=== PATIENT | male | born 1960 | race Caucasian/White ===

== ENCOUNTER 2017-09-09 08:09 | Emergency (ER) | payer OTHER ==
[~2017-09-09] VITALS: Ht 172.7 cm; Wt 86.2 kg
[2017-09-09] MEDS ORDERED: Cipro500 MG PO (10:31)
[2017-09-09] MEDS ORDERED: IBUP600 PO (10:31)
[2017-09-09] MEDS ORDERED: Percocet 5-3251 EACH PO (10:31)
[2017-09-10 14:39] LABS: Source Urine
== END 2017-09-09 10:57 | disposition home or self-care (01) ==
LOC: ER 08:09
PROVIDERS: Emergency Medicine
DX: N45.1 Epididymitis (principal); F17.200 Nicotine dependence, unspecified, uncomplicated
CPT/HCPCS: 76870; 81000; 87491; 87591; 96372; 99284; J1170

== ENCOUNTER → 2025-01-30 | Outpatient (CLI) | payer OTHER ==
[~2025-01-30] MED LIST: CYCL10 PO; Cipro500 MG PO; IBUP600 PO; LIDO700A20 TOP; ONDA4ODT MM; OXAYDO5 M1 PO; Percocet 5-3251 EACH PO
[2025-01-30 20:24] LABS: Campylobacter Sp Not Detected (NOT DETECT); E. Coli O157 Not Detected (NOT DETECT); Enteroaggregative E. coli-EAEC Not Detected (NOT DETECT); Enteropathogenic E. coli-EPEC Not Detected (NOT DETECT); Enterotoxigenic E. coli-ETEC Not Detected (NOT DETECT); Salmonella Sp Not Detected (NOT DETECT); Shiga Toxin-prod E. coli-STEC Not Detected (NOT DETECT); Shigella/Enteroin E. coli-EIEC Not Detected (NOT DETECT); Vibrio Sp Not Detected (NOT DETECT)
[2025-02-03 15:56] LABS: CALPROTECTIN,FECAL 313 ug/g (<=49)
== END | disposition home or self-care (01) ==
LOC: LAB 12:20 → LAB SHORT 12:20
PROVIDERS: Internal Medicine
DX: K52.9 Noninfective gastroenteritis and colitis, unspecified (principal)
CPT/HCPCS: 83993; 87507

== ENCOUNTER 2025-04-10 11:07 | Day surgery (SDC) | payer OTHER ==
[2025-04-10] VITALS (55 sets, daily range): BP systolic 100–140; BP diastolic 53–120
[~2025-04-10] VITALS: Ht 172.7 cm; Wt 71.3 kg
[2025-04-10] MEDS ORDERED: Midazolam HCl 1MG / ML 2ML Vial ONE (11:58)
[2025-04-10] MEDS ORDERED: OMEP20ER PO (12:05)
[2025-04-10] MEDS ORDERED: FINA5 PO (12:08)
[2025-04-10] MEDS ORDERED: TAMS.4ER PO (12:09)
--- NOTE | 2025-04-10 12:34 | NUR ---
History, Chart, Medications and Allergies reviewed before start of procedure. Patient up to Ambulate independently. Gait steady. Pre-Op teaching done. Pt verbalizes understanding. Patient confirms NPO status and agrees with scheduled surgery. Patient states colon prep results red without sediment. Patient States Post-Procedure ride home has been arranged.
[2025-04-10] MEDS ORDERED: Bentyl20 MG PO (12:39)
[2025-04-10] MEDS ORDERED: LUBIPROSTONE8 MCG PO (12:40)
--- NOTE | 2025-04-10 13:01 | NUR ---
04/10/25 1301 David Jenkins CONFIRMED AND REVIEWED H&P, MEDCICATIONS, ALLERGIES, MEDICAL HISTORY, RESPIRATORY HISTORY, VITAL SIGNS, 3-LEAD EKG, CONSENTS, AND PHYSICIAN ORDERS. PATIENT CONFIRMS NPO STATUS AND AGREES WITH SCHEDULED PROCEDURE. MONITOR INTACT WITH CONTINUOUS PULSE OXIMETRY, CAPNOGRAPHY, 3-LEAD EKG, INTERMITTENT BP. SUPPLEMENTAL O2 TO BE TITRATED THROUGHOUT PROCEDURE TO MAINTAIN O2 SATURATION ABOVE 90%. PATIENT DETERMINED TO BE ASA APPROPRIATE FOR PROPOFOL SEDATION PRIOR TO START OF PROCEDURE BY DR. SCOTT.
[2025-04-10] MEDS ORDERED: FentaNYL Citrate 50 MCG/ML 2 ML Injection ONE (14:26)
--- NOTE | 2025-04-10 15:23 | NUR ---
[address] OFF [address] IMAGING FOR CT
--- NOTE | 2025-04-10 16:20 | NUR ---
Discharge instructions reviewed with patient. Patient verbalizes understanding. Copy given to patient to take home. Patient States Post-Procedure ride home has been arranged. Discharged via wheelchair to private car for ride home.
== END 2025-04-10 16:05 | disposition home or self-care (01) ==
LOC: ORSCMMR 11:07 → ORD 12:30 → ORSCMMR 16:05
PROVIDERS: Family Medicine
PROC: 0DB78ZX Excision of Stomach, Pylorus, Via Natural or Artificial Opening Endoscopic, Diagnostic (ICD-10-PCS; principal; 2025-04-10 12:30)
PROC: 0DBL8ZX Excision of Transverse Colon, Via Natural or Artificial Opening Endoscopic, Diagnostic (ICD-10-PCS; principal; 2025-04-10 12:30)
PROC: 0DB48ZX Excision of Esophagogastric Junction, Via Natural or Artificial Opening Endoscopic, Diagnostic (ICD-10-PCS; principal; 2025-04-10 12:30)
PROC: 3E0H8KZ Introduction of Other Diagnostic Substance into Lower GI, Via Natural or Artificial Opening Endoscopic (ICD-10-PCS; principal; 2025-04-10 12:30)
PROC: 0DBM8ZX Excision of Descending Colon, Via Natural or Artificial Opening Endoscopic, Diagnostic (ICD-10-PCS; principal; 2025-04-10 12:30)
PROC: 0DBK8ZX Excision of Ascending Colon, Via Natural or Artificial Opening Endoscopic, Diagnostic (ICD-10-PCS; principal; 2025-04-10 12:30)
PROC: 0DB98ZX Excision of Duodenum, Via Natural or Artificial Opening Endoscopic, Diagnostic (ICD-10-PCS; principal; 2025-04-10 12:30)
DX: R10.9 Unspecified abdominal pain (principal); K92.1 Melena; K31.7 Polyp of stomach and duodenum; K29.70 Gastritis, unspecified, without bleeding; D12.4 Benign neoplasm of descending colon; D12.3 Benign neoplasm of transverse colon; D12.2 Benign neoplasm of ascending colon; R63.4 Abnormal weight loss; D64.9 Anemia, unspecified; K44.9 Diaphragmatic hernia without obstruction or gangrene; K64.4 Residual hemorrhoidal skin tags; Z79.899 Other long term (current) drug therapy; E78.2 Mixed hyperlipidemia; F41.9 Anxiety disorder, unspecified; F17.210 Nicotine dependence, cigarettes, uncomplicated; F32.9 Major depressive disorder, single episode, unspecified
CPT/HCPCS: 71260; 74177; 88305; 88342; J2250; J2704; J3010; J7120; Q9967

== ENCOUNTER 2025-04-23 14:38 | Day surgery (SDC) | payer OTHER ==
[~2025-04-23] VITALS: Ht 170.2 cm; Wt 68.1 kg
[~2025-04-23 14:38] MED LIST changes: +Bentyl20 MG PO; +FINA5 PO; +LUBIPROSTONE8 MCG PO; +OMEP20ER PO; +TAMS.4ER PO
[2025-04-23 15:36] VITALS: BP 117/78
--- NOTE | 2025-04-23 15:48 | NUR ---
History, Chart, Medications and Allergies reviewed before start of procedure.Pre-Op teaching done. Pt verbalizes understanding. Patient states colon prep results clear. Patient States Post-Procedure ride home has been arranged. Patient confirms NPO status and agrees with scheduled surgery.
--- NOTE | 2025-04-23 16:12 | NUR ---
04/23/[address] SEE ANESTHESIA RECORDS.
[2025-04-23] MEDS ORDERED: NS 500 ML IV ONE (17:27)
[2025-04-23] MEDS ORDERED: NS 1,000 ML BAG IR SCH (17:30)
[2025-04-23] MEDS ORDERED: NS 500 ML IV SCH (17:40)
[2025-04-23 18:20] VITALS: BP 122/94
[2025-04-23 18:35] VITALS: BP 134/97
--- NOTE | 2025-04-23 18:44 | NUR ---
TO STEP POST PROCEDURE. CONFUSED, FORGETFUL, EASY TO RE-ORIENT. DENIES PAIN, NAUSEA, SOB. MULTIPLE BX'S TAKEN, PT INFORMED POSSIBLITY OF SMALL AMT BLOOD IN STOOL, VERBALIZED UNDERSTANDING OF DC INSTRUCTIONS, FOLLOW UP, MEDICATIONS. NAYAN PO WELL. FAMILY AT BEDSIDE. DRESSED AT BEDSIDE WITH SLIGHT ASSIST. AMBULATED TO BATHROOM WITH SB ASSIST. INSTRUCTED TO USE CALL LIGHT/SAFETY RAILS WHILE USING BATHROOM, DECLINED NURSE SUPERVISION IN BATHROOM. NOISE HEARD FROM BATHROOM, PT FOUND SITTING ON FLOOR. STATED HE "LEANED AGAINST WALL AND SLID DOWN". DENIES ANY INJURY. SEATED IN WC AND ASSESSED FOR INJURY. NO INJURY FOUND AND PT REPORTED HE WAS NOT IN ANY PAIN AND DID NOT HIT HIS HEAD. DISCHARGED VIA WC TO PRIVATE CAR WITH MOTOR VEHICLE OR [employer] SALESPERSON. MOTOR VEHICLE OR [employer] SALESPERSON INFOMRED OF FALL AND STATED, "HE DOES THIS AT HOME ALL THE TIME". DC'D IN STABLE CONDITION.
== END 2025-04-23 18:40 | disposition home or self-care (01) ==
LOC: ORSCMMR 14:38
PROVIDERS: Family Medicine
PROC: 0DBL8ZX Excision of Transverse Colon, Via Natural or Artificial Opening Endoscopic, Diagnostic (ICD-10-PCS; principal; 2025-04-23 16:00)
PROC: 0DBM8ZX Excision of Descending Colon, Via Natural or Artificial Opening Endoscopic, Diagnostic (ICD-10-PCS; principal; 2025-04-23 16:00)
PROC: 0DBN8ZX Excision of Sigmoid Colon, Via Natural or Artificial Opening Endoscopic, Diagnostic (ICD-10-PCS; principal; 2025-04-23 16:00)
PROC: 0DBK8ZX Excision of Ascending Colon, Via Natural or Artificial Opening Endoscopic, Diagnostic (ICD-10-PCS; principal; 2025-04-23 16:00)
DX: K63.89 Other specified diseases of intestine (principal); D50.9 Iron deficiency anemia, unspecified; C18.2 Malignant neoplasm of ascending colon; D12.4 Benign neoplasm of descending colon; D12.3 Benign neoplasm of transverse colon; D12.5 Benign neoplasm of sigmoid colon; E78.5 Hyperlipidemia, unspecified; F17.210 Nicotine dependence, cigarettes, uncomplicated; K21.9 Gastro-esophageal reflux disease without esophagitis; Z86.73 Personal history of transient ischemic attack (TIA), and cerebral infarction without residual deficits; Z79.899 Other long term (current) drug therapy; F41.9 Anxiety disorder, unspecified; R63.4 Abnormal weight loss; Z86.0101 Personal history of adenomatous and serrated colon polyps; Z09 Encounter for follow-up examination after completed treatment for conditions other than malignant neoplasm; K64.8 Other hemorrhoids; K64.4 Residual hemorrhoidal skin tags
CPT/HCPCS: 88305; 88342; J2704; J7040; J7120

== ENCOUNTER 2025-06-16 14:34 | Emergency (ER) | payer OTHER ==
[~2025-06-16] VITALS: Ht 172.7 cm; Wt 67.6 kg
[2025-06-16] MEDS ORDERED: CELE100 PO (15:25)
[2025-06-16] MEDS ORDERED: NEURONTIN300 MG PO (15:25)
[2025-06-16] MEDS ORDERED: Methocarbamol500 MG PO (15:25)
[2025-06-16 15:33] LABS: BASOPHILS ABSOLUTE AUTO 0.09 K/mm3 (0.00-0.23); BASOPHILS PERCENT AUTO 1 % (0-2); EOSINOPHILS ABSOLUTE AUTO 0.54 K/mm3 (0.00-0.68); EOSINOPHILS PERCENT AUTO 4 % (0-6); Hematocrit 29.8 % (37.0-53.0); Hemoglobin 9.5 g/dL (13.5-17.5); IMMATURE GRAN ABSOLUTE AUTO 0.05 K/mm3 (0.00-0.10); IMMATURE GRAN PERCENT AUTO 0 % (0-1); LYMPHOCYTES ABSOLUTE AUTO 2.19 K/mm3 (0.84-5.20); LYMPHOCYTES PERCENT AUTO 15 % (21-46); MONOCYTES ABSOLUTE AUTO 1.66 K/mm3 (0.16-1.47); MONOCYTES PERCENT AUTO 11 % (4-13); Mean Corpuscular HGB Conc 31.9 g/dL (31.5-36.5); Mean Corpuscular Volume 81 fL (80-100); NEUTROPHILS ABSOLUTE AUTO 10.33 K/mm3 (1.96-9.15); NEUTROPHILS PERCENT AUTO 70 % (41-73); NRBC ABSOLUTE 0.00 K/mm3 (0.00-0.02); NRBC Auto 0.0 /100 WBC (0.0-0.2); Platelet Count 468 K/mm3 (150-400); RDW Coefficient Variation 15.5 % (11.7-14.2); RDW Standard Deviation 44.8 fL (35.1-46.3)
[2025-06-16 15:37] LABS: Alanine Aminotransfer (ALT/SGP 37.0 U/L (12-78); Albumin, Blood 3.2 g/dL (3.4-5.0); Albumin/Globulin Ratio 0.9 (0.8-1.8); Anion Gap 9.0 mmol/L (3-11); Aspartate Aminotrans (AST/SGOT 19.0 U/L (12-37); Bilirubin, Total 0.4 mg/dL (0.1-1.0); Blood Urea Nitrogen 12.0 mg/dL (8-24); CO2, Blood 25.0 mmol/L (21-32); Calcium, Blood 8.8 mg/dL (8.5-10.1); Chloride, Blood 107.0 mmol/L (98-108); Creatinine, Blood 0.8 mg/dL (0.60-1.20); Globulin, Blood 3.7 g/dL (2.2-4.0); Glucose, Blood 95.0 mg/dL (70-99); Potassium, Blood 4.0 mmol/L (3.5-5.5); Sodium, Blood 137.0 mmol/L (136-145); Total Protein, Blood 6.9 g/dL (6.4-8.2)
[2025-06-16 16:58] VITALS: BP 121/88
[2025-06-16] MEDS ORDERED: ONDA4ODT MM (16:59)
== END 2025-06-16 17:15 | disposition home or self-care (01) ==
LOC: ER 14:34
PROVIDERS: Emergency Medicine
DX: R55 Syncope and collapse (principal); E86.0 Dehydration; I95.9 Hypotension, unspecified; F17.200 Nicotine dependence, unspecified, uncomplicated; Z90.49 Acquired absence of other specified parts of digestive tract; Z79.1 Long term (current) use of non-steroidal anti-inflammatories (NSAID); Z79.899 Other long term (current) drug therapy
CPT/HCPCS: 74177; 80053; 85025; 93005; 93010; 99285-25; Q9967

== ENCOUNTER 2025-07-19 08:18 | Day surgery (SDC) | payer OTHER ==
[2025-07-19] VITALS (8 sets, daily range): BP systolic 103–112; BP diastolic 70–75
[~2025-07-19] VITALS: Ht 172.7 cm; Wt 71.4 kg
[~2025-07-19 08:18] MED LIST changes: +CELE100 PO; +CeFAZolin Sodium 2,000 MG in NS 100 ML IV SCH; +Methocarbamol500 MG PO; +NEURONTIN300 MG PO; +Norco 10-325 T1 EACH PO; +OXYC5 PO
--- NOTE | 2025-07-19 09:09 | NUR ---
PT TO DAY SURGERY AMBULATORY WITH STEADY GAIT. DENIES NEED TO USE RESTROOM. SPOUSE TO DAY SURGERY WITH PT AND AT BEDSIDE DURING ADMIT. Pre-Op teaching done. Pt verbalizes understanding. Patient States Post-Procedure ride home has been arranged WITH SPOUSE. BELONGINGS PLACED UNDER GURN. GLASSES TO BE PLACED IN PACU.
[2025-07-19] MEDS ORDERED: Bupivacaine 0.5% HCl 5 MG/ML 30MLVIAL ONE (10:12)
[2025-07-19] MEDS ORDERED: FentaNYL Citrate 50 MCG/ML 2 ML Injection ONE (10:26)
[2025-07-19] MEDS ORDERED: Ondansetron HCl 2 MG / ML 2ML Vial ONE (10:32)
[2025-07-19] MEDS ORDERED: Dexamethasone Sod Phos 10 MG/ML 1ML VIAL ONE (10:32)
[2025-07-19] MEDS ORDERED: Phenylephrine HCl 100 MCG/ML-NS 10MLSYR (1MG/10ML) ONE (10:33)
[2025-07-19] MEDS ORDERED: FentaNYL Citrate 50 MCG/ML 2 ML Injection IV PRN ×2 (10:40→10:45)
[2025-07-19] MEDS ORDERED: HYDROmorphone HCl/Pf 1MG SYR IV PRN ×2 (10:40)
[2025-07-19] MEDS ORDERED: Albuterol 2.5 MG/3 ML VIAL INH PRN (10:40)
[2025-07-19] MEDS ORDERED: Ondansetron HCl 2 MG / ML 2ML Vial IV PRN (10:40)
[2025-07-19] MEDS ORDERED: Ketorolac Tromethamine 30mg Vial ONE (11:09)
--- NOTE | 2025-07-19 12:09 | NUR ---
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
== END 2025-07-19 23:00 | disposition home or self-care (01) ==
LOC: ORSCMMR 08:18 → ORD 09:30 → ORSCMMR 23:00
PROVIDERS: Student in an Organized Health Care Education/Training Program
PROC: 0JH63WZ Insertion of Totally Implantable Vascular Access Device into Chest Subcutaneous Tissue and Fascia, Percutaneous Approach (ICD-10-PCS; principal; 2025-07-19 09:30)
DX: C18.6 Malignant neoplasm of descending colon (principal); I10 Essential (primary) hypertension; K21.9 Gastro-esophageal reflux disease without esophagitis; F17.210 Nicotine dependence, cigarettes, uncomplicated; Z79.899 Other long term (current) drug therapy
CPT/HCPCS: 77001; C1788; J0690; J1100; J1642; J1885; J2371; J2405; J2704; J3010; J7120